=== PATIENT | female | born 1930 | race Caucasian/White ===

== ENCOUNTER 2016-08-06 00:52 | Emergency (ER) | payer OTHER, MEDICARE ==
[2016-08-06 01:03] VITALS: TEMP 98.2
--- NOTE | 2016-08-06 01:20 | CPEKG ---
Heart Rate: 103 RR Interval: 583 P-R Interval: 204 QRSD Interval: 88 QT Interval: 356 QTC Interval: 466 P [place]: 63 QRS [place]: 34 T Wave [place]: 42 EKG Severity - OTHERWISE NORMAL ECG - EKG Impression: SINUS TACHYCARDIA Electronically Signed By: Winnie Garcia 06-Aug-2016 07:10:52
[2016-08-06] MEDS ORDERED: ASPIRIN 81 MG CHEWABLE TAB PO ONE (01:29)
[2016-08-06] MEDS ORDERED: NS 500 ML IV ONE (01:29)
[2016-08-06] MEDS ORDERED: ASPIRIN 81 MG CHEWABLE TAB ONE (01:31)
--- NOTE | 2016-08-06 01:33 | EDPHY ---
H & P Stated Complaint: L chest pressure ~1h ago, SOB, weakness Time Seen by Provider: 08/06/16 01:08 HPI/ROS: HPI The patient presents with chest pressure which began at about 12:30 a.m. this morning. It is in the left side of her chest and does not radiate it lasted for about 30 minutes and then began to improve on its own. It is moderate in severity. She had gotten up to use the bathroom and was getting back into bed when the symptoms occurred. This was associated with shortness of breath and a rapid pulse. She generally felt quite weak but was able to get into the car. She has no prior history of similar. She did arrive here from [place] on a 4 hour airplane flight yesterday. She has not had a cough for a fever. REVIEW OF SYSTEMS Constitutional: No fever, no chills. Eyes: No discharge. ENT: No sore throat. Cardiovascular: See HPI Respiratory: No cough, no shortness of breath. Gastrointestinal: No abdominal pain, no vomiting. Genitourinary: No hematuria. Musculoskeletal: No back pain. Skin: No rashes. Neurological: No headache. PMHx: Hypertension, osteoarthritis Soc Hx: Visiting family from [place] PHYSICAL General Appearance: Alert, no distress Eyes: Pupils equal and round no pallor or injection ENT, Mouth: Mucous membranes moist Respiratory: There are no retractions, lungs are clear to auscultation Cardiovascular: Tachycardic rate with regular rhythm Gastrointestinal: Abdomen is soft and non-tender, no masses, bowel sounds normal Neurological: A&O, moves all extremities Skin: Warm and dry, no rashes Musculoskeletal: Neck is supple non tender Extremities: symmetrical, full range of motion, no lower extremity edema Psychiatric: Patient is oriented X 3, there is no agitation Source: Patient, Family Exam Limitations: No limitations - Personal History Current Tetanus/Diphtheria Vaccine: Yes Current Tetanus Diphtheria and Acellular Pertussis (TDAP): Yes - Medical/Surgical History Hx Asthma: Yes Hx Chronic Respiratory Disease: No Hx Diabetes: No Hx Cardiac Disease: No Hx Renal Disease: No Hx Cirrhosis: No Hx Alcoholism: No Hx HIV/AIDS: No Hx Splenectomy or Spleen Trauma: No Other PMH: HTN, hx syncope, asthma, osteopenia. hx ortho sgys - Social History Smoking Status: Never smoked Constitutional: Initial Vital Signs Temperature (C) 36.8 C 08/06/16 00:56 Heart Rate 102 H 08/06/16 00:56 Respiratory Rate 20 08/06/16 00:56 Blood Pressure 164/87 H 08/06/16 00:56 O2 Sat (%) 96 08/06/16 00:56 O2 Delivery Mode Room Air Allergies/Adverse Reactions: azithromycin [From Zithromax] Allergy (Verified 08/06/16 01:05) cefuroxime [From Ceftin] Allergy (Verified 08/06/16 01:05) ciprofloxacin [From Cipro] Allergy (Verified 08/06/16 01:05) clindamycin Allergy (Verified 08/06/16 01:05) sulfamethoxazole [From Bactrim] Allergy (Verified 08/06/16 01:05) trimethoprim [From Bactrim] Allergy (Verified 08/06/16 01:05) Home Medications: Medication Instructions Recorded ACETAMINOPHEN 08/06/16 ASPIRIN 08/06/16 Amlodipine Besylate 08/06/16 Atorvastatin Calcium 08/06/16 Losartan Potassium 08/06/16 Medical Decision Making - Diagnostics EKG Interpretation: EKG: Complete interpretation has been separately recorded in the [facility] archive. Summary impression: Sinus tachycardia Imaging Results: Chest x-ray two views demonstrates no cardiomegaly, no infiltrate, interpreted by me, radiology interpretation is pending. CT scan of chest, angiography demonstrates no pulmonary embolism with mild peribronchial thickening with scattered mucous plugging, old posterior rib fracture, discussed with Dr. Goldman of Radiology. Differential Diagnosis: This is an 86-year-old female with hypertension who presents brought in by her family for an episode of chest pain which began at 12:30 a.m. this morning which is now mostly resolved. This is associated with shortness of breath and weakness. On exam, she is slightly tachycardic. Differential diagnosis includes pulmonary embolism, ACS, pneumonia, musculoskeletal pain. In the emergency room, patient was given aspirin. She had no recurrence of her symptoms and felt well. Serial troponins were unremarkable. EKG was normal showing no signs of ischemia. D-dimer was negative, however due to high clinical suspicion CT scan of chest with IV contrast was performed to rule out pulmonary embolism. This was negative for PE. The patient's pain could be musculoskeletal, she wonders if could be related to altitude. She will be discharged from the emergency room in the care of her daughter. We have discussed strict return precautions of her chest pain is to recur. - Data Points Laboratory Results: Laboratory Results 08/06/16 01:22 08/06/16 01:22 08/06/16 08/06/16 08/06/16 02:52 01:22 01:22 WBC RBC Hgb Hct MCV MCH MCHC RDW Plt Count MPV Neut % (Auto) Lymph % (Auto) [place] % (Auto) Eos % (Auto) Baso % (Auto) Nucleat RBC Rel Count Absolute Neuts (auto) Absolute Lymphs (auto) Absolute Monos (auto) Absolute Eos (auto) Absolute Basos (auto) Absolute Nucleated RBC Immature Gran % Immature Gran # D-Dimer 0.42 ug/mLFEU ug/mLFEU (0.00-0.50) Sodium 144 mEq/L mEq/L (134-144) Potassium 4.2 mEq/L mEq/L (3.5-5.2) Chloride 109 mEq/L mEq/L (97-110) Carbon Dioxide 24 mEq/l mEq/l (22-31) Anion Gap 11 mEq/L mEq/L (8-16) BUN 27 mg/dL H mg/dL (7-23) Creatinine 1.1 mg/dL H mg/dL (0.6-1.0) Estimated GFR 47 Glucose 106 mg/dL H mg/dL (70-100) Calcium 9.9 mg/dL mg/dL (8.5-10.4) Troponin I 0.019 ng/mL ng/mL < 0.012 ng/mL ng/mL (0-0.034) (0-0.034) 08/06/16 01:22 WBC 8.92 10^3/uL 10^3/uL (3.80-9.50) RBC 5.16 10^6/uL 10^6/uL (4.18-5.33) Hgb 14.6 g/dL g/dL (12.6-16.3) Hct 45.4 % % (38.0-47.0) MCV 88.0 fL fL (81.5-99.8) MCH 28.3 pg pg (27.9-34.1) MCHC 32.2 g/dL L g/dL (32.4-36.7) RDW 14.7 % % (11.5-15.2) Plt Count 157 10^3/uL 10^3/uL (150-400) MPV 12.3 fL H fL (8.7-11.7) Neut % (Auto) 67.9 % % (39.3-74.2) Lymph % (Auto) 19.4 % % (15.0-45.0) [place] % (Auto) 8.6 % % (4.5-13.0) Eos % (Auto) 3.3 % % (0.6-7.6) Baso % (Auto) 0.6 % % (0.3-1.7) Nucleat RBC Rel Count 0.0 % % (0.0-0.2) Absolute Neuts (auto) 6.06 10^3/uL 10^3/uL (1.70-6.50) Absolute Lymphs (auto) 1.73 10^3/uL 10^3/uL (1.00-3.00) Absolute Monos (auto) 0.77 10^3/uL 10^3/uL (0.30-0.80) Absolute Eos (auto) 0.29 10^3/uL 10^3/uL (0.03-0.40) Absolute Basos (auto) 0.05 10^3/uL 10^3/uL (0.02-0.10) Absolute Nucleated RBC 0.00 10^3/uL 10^3/uL (0-0.01) Immature Gran % 0.2 % % (0.0-1.1) Immature Gran # 0.02 10^3/uL 10^3/uL (0.00-0.10) D-Dimer Sodium Potassium Chloride Carbon Dioxide Anion Gap BUN Creatinine Estimated GFR Glucose Calcium Troponin I Medications Given: Discontinued Medications Aspirin (Aspirin) 324 mg PO EDNOW ONE Stop: 08/06/16 01:30 Last Admin: 08/06/16 01:36 Dose: 324 mg Sodium Chloride (Ns) 500 mls @ 0 mls/hr IV ONCE ONE PRN Reason: As Directed Stop: 08/06/16 01:30 Last Admin: 08/06/16 01:36 Dose: 500 mls Departure - Departure Disposition: Home, Routine, Self-Care Clinical Impression: Chest pain Qualifiers: Chest pain type: other chest pain Qualified Code(s): R07.89 - Other chest pain Condition: Good Instructions: Chest Pain (ED) Additional Instructions: Please return to the emergency room if your chest pain comes back. Referrals: OUT OF,STATE [Other] - As per Instructions
[2016-08-06 01:36] LABS: % IMMATURE GRANULYOCYTES 0.2 % (0.0-1.1); ABSOLUTE IMMATURE GRANULOCYTES 0.02 10^3/uL (0.00-0.10); ADD DIFF? NO; ADD MORPH? NO; ADD SCAN? NO; ATYPICAL LYMPHOCYTE FLAG 0 (0-99); FRAGMENT RBC FLAG 0 (0-99); HEMATOCRIT 45.4 % (38.0-47.0); HEMOGLOBIN 14.6 g/dL (12.6-16.3); LEFT SHIFT FLG 0 (0-99); LIPEMIA HEMOLYSIS FLAG 80 (0-99); MEAN CELL HEMOGLOBIN 28.3 pg (27.9-34.1); MEAN CELL HEMOGLOBIN CONCENTR. 32.2 g/dL (32.4-36.7); MEAN PLATELET VOLUME 12.3 fL (8.7-11.7); PLATELET CLUMPS FLAG 10 (0-99); PLATELET COUNT 157 10^3/uL (150-400); RED BLOOD CELL COUNT 5.16 10^6/uL (4.18-5.33); RED CELL DISTRIBUTION WIDTH 14.7 % (11.5-15.2)
[2016-08-06 01:42] LABS: ANION GAP 11 mEq/L (8-16); CALCIUM 9.9 mg/dL (8.5-10.4); CARBON DIOXIDE 24 mEq/l (22-31); CHLORIDE 109 mEq/L (97-110); CREATININE 1.1 mg/dL (0.6-1.0); GLOMERULAR FILTRATION RATE 47; GLUCOSE 106 mg/dL (70-100); POTASSIUM 4.2 mEq/L (3.5-5.2); SODIUM 144 mEq/L (134-144)
[2016-08-06 01:55] LABS: TROPONIN I < 0.012 ng/mL (0-0.034)
[2016-08-06] MEDS ORDERED: IOPAMIDOL (ISOVUE 370) 100 ML BTL IV ONE (02:19)
[2016-08-06 03:55] VITALS: BP 163/84; PULSE 89; RESP 16; O2SAT 93
== END 2016-08-06 03:54 | disposition home or self-care (01) ==
DX: R07.89 Other chest pain (principal); I10 Essential (primary) hypertension; J45.909 Unspecified asthma, uncomplicated; Z79.82 Long term (current) use of aspirin
CPT/HCPCS: 71020; 71275; 93005; 96360; 99285; Q9967